=== PATIENT | female | born 1995 | race Caucasian/White ===

== ENCOUNTER 2023-05-10 15:21 | Emergency (ER) | payer BC, OTHER ==
[~2023-05-10] VITALS: Ht 165.1 cm; Wt 108.9 kg
[~2023-05-10 15:21] MED LIST: GLU500 PO
[2023-05-10 15:56] VITALS: BP 137/74; PULSE 121; RESP 22; TEMP 97.9; O2SAT 98
[2023-05-10] MEDS ORDERED: NACL 0.9% 2,000 ML IV SCH (16:30)
[2023-05-10 17:06] LABS: LYMPHOCYTES # (AUTO) 0.6 K/uL (2.5-16.5); MONOCYTES # (AUTO) 0.5 K/uL (0.8-1.0); PLATELET COUNT (AUTO) 233 K/uL (140-450)
[2023-05-10 17:07] LABS: BASOPHILS % (AUTO) 0.1 % (0.0-2.0); EOSINOPHILS % (AUTO) 0.6 % (0.0-4.0); HEMATOCRIT 38.9 % (36-48); LYMPHOCYTES % (AUTO) 7.5 % (20.5-51.1); MEAN CORPUSCULAR HEMOGLOBIN 28 pg (27-31); MEAN CORPUSCULAR HGB CONC 33 g/dL (33-37); MEAN CORPUSCULAR VOLUME 82.4 fL (80-94); MONOCYTES % (AUTO) 6.8 % (1.7-9.3); NEUTROPHILS # (AUTO) 6.5 K/uL (1.8-7.7); RED BLOOD CELL COUNT(AUTO) 4.72 MIL/uL (4.20-5.40); RED CELL DISTRIBUTION WIDTH 14.2 % (11.6-13.7); WHITE BLOOD COUNT (AUTO) 7.6 K/uL (4.8-10.8)
[2023-05-10 17:28] LABS: ALANINE AMINOTRANSFERASE 15 U/L (12-78); ALBUMIN 3.4 g/dL (3.4-5.0); ALKALINE PHOSPHATASE 116 U/L (50-136); ASPARTATE AMINOTRANSFERASE 10 U/L (15-37); CALCIUM 8.9 mg/dL (8.5-10.1); CARBON DIOXIDE 30.1 mmol/L (21-32); CHLORIDE 102 mmol/L (98-107); CREATININE 0.8 mg/dL (0.6-1.3); GFR ARICAN-AMERICAN 111 mL/min (>90); GFR NON ARICAN-AMERICAN 91 mL/min (>90); GLUCOSE 289 mg/dL (74-106); POTASSIUM 4.1 mmol/L (3.5-5.1); SODIUM SERUM 139 mmol/L (136-145); TOTAL BILIRUBIN 0.7 mg/dL (0.0-1.0); TOTAL PROTEIN, SERUM 8.4 g/dL (6.4-8.2); UREA NITROGEN, BLOOD 9 mg/dL (7-18)
[2023-05-10 17:31] LABS: LACTIC ACID 1.4 mmol/L (0.4-2.0)
[2023-05-10] MEDS ORDERED: NACL 0.9% 1,000 ML IV ONE (18:05)
[2023-05-10] MEDS ORDERED: ONDANSETRON 4 MG/2 ML VIAL IVP ONE (18:45)
[2023-05-10 19:41] LABS: APPEARANCE,URINE CLEAR (CLEAR); BILIRUBIN,URINE NEGATIVE (NEGATIVE); BLOOD, URINE NEGATIVE (NEGATIVE); COLOR,URINE YELLOW (YELLOW); LEUKOCYTE ESTERASE ,URINE NEGATIVE (NEGATIVE); NITRITE, URINE POSITIVE (NEGATIVE); PROTEIN,URINE NEGATIVE (NEGATIVE); UGLUCOSE 1+ (NEGATIVE); UROBILINOGEN,URINE 0.2 EU/dL (0.2 - 1)
[2023-05-10 19:53] LABS: BACTERIA,URINE >30 (MANY) /HPF (None Seen); RBC,URINE 0-5 /HPF (0-5); SQUAMOUS EPITHELIAL CELL,UR 0-3 (FEW) /LPF (0-3 (FEW))
[2023-05-10] MEDS ORDERED: KETOROLAC 30 MG/ML VIAL IVP ONE (20:00)
[2023-05-10] MEDS ORDERED: ONDANSETRON 4 MG/2 ML VIAL ONE (20:10)
[2023-05-10] MEDS ORDERED: CEPH-588 PO (20:20)
[2023-05-10] MEDS ORDERED: ONDA-188 SL (20:20)
[2023-05-10 20:46] VITALS: BP 138/76; PULSE 108; RESP 22; TEMP 97.9; O2SAT 98
== END 2023-05-10 20:46 | disposition home or self-care (01) ==
LOC: MED 15:21
DX: N12 Tubulo-interstitial nephritis, not specified as acute or chronic (principal); R11.2 Nausea with vomiting, unspecified; E11.9 Type 2 diabetes mellitus without complications; Z79.4 Long term (current) use of insulin; Z79.899 Other long term (current) drug therapy
CPT/HCPCS: 36415; 71045; 80053; 81001; 81025; 83605; 83690; 84484; 85025; 87040; 87086; 96361; 96374; 96375; 99285; J1885; J2405; J7030